=== PATIENT | female | born 1975 | race Caucasian/White ===

== ENCOUNTER 2016-11-24 11:24 | Emergency (ER) | payer OTHER ==
--- NOTE | 2016-11-24 12:20 | DIAGNOSTIC IMAGING REPORT ---
PROCEDURE: XR TOE - RIGHT INDICATION: TRAUMA/INJURY TECHNIQUE: Three views. COMPARISON: None. FINDINGS: Nondisplaced comminuted fracture of distal tuft of the right great toe. IMPRESSION: 1. Nondisplaced comminuted fracture of distal tuft of the right great toe.
--- NOTE | 2016-11-24 12:30 | ED CLINICAL REPORT ---
Clinical Report - Physicians/Mid Levels [facility] [address] [place] [address] 11/24/2016 11:28 Patient: TROY MONROY Time Seen: 1145. Arrived- By private vehicle. Historian- patient and family. HISTORY OF PRESENT ILLNESS Chief Complaint: Injury to the right great toe. The injury happened today. The patient sustained a moderate crush injury- dropped object on foot. Occurred at home. Patient is experiencing moderate pain. Patient denies injury to the head or neck. No other injury. REVIEW OF SYSTEMS The patient sustained a laceration. She complains of pain on weight bearing. No weakness, numbness or suspected foreign body. All systems otherwise negative, except as recorded above. PAST HISTORY See nurses notes. Tetanus immunization status is up-to-date. Medications: None. Allergies: Penicillins. Zofran. (lips swelling ). SOCIAL HISTORY Never smoker. Occasional alcohol use. No drug use. Is a local resident. ADDITIONAL NOTES The nursing notes have been reviewed. PHYSICAL EXAM Vital Signs: 11/24/2016 11:44 BP: 123/88. HR: 90. RR: 16. O2 saturation: 96%. Temp: 98.1 F. Pain level now: 5/10. Blood pressure normal. Oxygen saturation normal. Appearance: Alert. Oriented X3. No acute distress. Head: Head atraumatic. CVS: Normal heart rate and rhythm. Heart sounds normal. Pulses normal. Respiratory: No respiratory distress. Breath sounds normal. Chest nontender. Abdomen: No visible injury. Soft and nontender. Bowel sounds normal. Skin: Skin intact. Skin warm and dry. Extremities: (large toe with medial distal 1/4 of nail avulsed. no active bleeding. no isaiah exposure. full AROM of the toe.). No foot injury. No ankle injury. Neuro, Vascular and Tendons: Vascular status intact. Sensation intact. Motor intact. Tendon function intact. Neuro: No motor deficit. No sensory deficit. LABS, X-RAYS, AND EKG Rt Toes X-ray: Normal alignment. Right toe(s) fracture. Joint spaces normal. No air in the soft tissue. Soft tissue swelling. Views: AP, lateral and oblique. Technique: good. The X-rays were independently viewed by me and interpreted by the radiologist. The X-rays were discussed with the radiologist (via pacs). PROGRESS AND PROCEDURES Course of Care: the patient is a pleasant 41-year-old female with no pertinent past medical history presenting for evaluation of right-sided toe pain. Based to be traumatic in nature. We'll evaluate for any acute osseous abnormalities with radiographs of the patient's toe. Patient is currentlyrequesting nonsedative type of pain medication. Vaccinations are up-to-date. Bleeding has been controlled while here in the emergency department. No foreign bodies noted. Patient's workup was remarkable for the findings above. Distal tuft fracture noted on examination. Because of the patient's injury, feel the patient would benefit from prophylactic antibiotics. Had a discussion with the patient in regards to her diagnosis here in the emergency department and need for follow-up with podiatry. Infection precautions also provided. Discussed with the patient workup here in the emergency department diagnosis, home care, follow-up, and return precautions. All questions have been answered. The patient expressed understanding of these instructions and was agreeable to them. Disposition: Discharged. Condition: good. CLINICAL IMPRESSION 11/24/2016 11:44 BP: 123/88. HR: 90. RR: 16. O2 saturation: 96%. Temp: 98.1 F. Pain level now: 5/10. Blood pressure normal. Oxygen saturation normal. Open distal phalanx fracture of the right 1st toe. Partial nail avulsion to right great toe. INSTRUCTIONS Warnings: GENERAL WARNINGS: Return or contact your physician immediately if your condition worsens or changes unexpectedly, if not improving as expected, or if other problems arise. Specifically return if pain, vomiting, bleeding, breathing difficulty or fever. Your Current Medications: CONTINUE TAKING THE FOLLOWING MEDICATIONS: None*. Prescription Medications: [place] 5 mg / 325 mg tablets: take 1 orally every 6 hours as needed for pain. Dispense twenty (20). No refill. Substitution is permissible. Clindamycin 300 mg: take 1 capsule orally every 8 hours for 7 days. No refill. (disp 21 caps) Follow-up: Return to the emergency department as needed. Follow up with your doctor in three days. Reason for referral: recheck today's concerns Screening today revealed the patient's blood pressure to be in the normal range. The patient should follow up with a primary care provider for blood pressure management. Understanding of the discharge instructions verbalized by patient. Follow-up with: Ludin Frias DPM, Podiatry, , [facility], [address] [place] [address], [address], [place] [address] Follow up. Reason for referral: recheck today's concerns in 5 - 7 days. Summary of care provided to patient via paper. (Electronically signed by Mike Canada Dr. 11/30/2016 14:50)
--- NOTE | 2016-11-24 12:30 | ED ORDER SUMMARY ---
..... Patient: TROY MONROY OrderSheet [facility] VisitID: [id number] [address] [place] [address] 41y, F Registration Date/Time: 11/24/2016 ORDER SHEET Weight: 81.6 kg (estimated) Allergies: Penicillins, Zofran GENERAL ORDERS: Toe Right Urgent (11:49 11/24/2016 Jennifer Almazan) (Ack 11:57 Fifi) (12:07 Fifi) Irrigate Wounds (NS) (betadine or chlorhexidine) (11:50 11/24/2016 Jennifer Almazan) (12:37 Fifi) MEDICATION ORDERS: Tylenol PO 650 mg (NOW) (11:49 11/24/2016 Jennifer Almazan) (12:44 Scotty Mustafa) IV FLUIDS: ORDER SHEET NOTES: [Electronically signed by Lex Segura R.N. (19:05 11/24/2016)] [Electronically signed by Mike Canada Dr. (14:50 11/30/2016)] [Electronically locked/signed by Lex Segura R.N. (19:11/24/2016)]
--- NOTE | 2016-11-24 12:30 | ED CLINICAL REPORT ---
Clinical Report - Physicians/Mid Levels [facility] [address] [place] [address] 11/24/2016 11:28 Patient: TROY MONROY Time Seen: 1145. Arrived- By private vehicle. Historian- patient and family. HISTORY OF PRESENT ILLNESS Chief Complaint: Injury to the right great toe. The injury happened today. The patient sustained a moderate crush injury- dropped object on foot. Occurred at home. Patient is experiencing moderate pain. Patient denies injury to the head or neck. No other injury. REVIEW OF SYSTEMS The patient sustained a laceration. She complains of pain on weight bearing. No weakness, numbness or suspected foreign body. All systems otherwise negative, except as recorded above. PAST HISTORY See nurses notes. Tetanus immunization status is up-to-date. Medications: None. Allergies: Penicillins. Zofran. (lips swelling ). SOCIAL HISTORY Never smoker. Occasional alcohol use. No drug use. Is a local resident. ADDITIONAL NOTES The nursing notes have been reviewed. PHYSICAL EXAM Vital Signs: 11/24/2016 11:44 BP: 123/88. HR: 90. RR: 16. O2 saturation: 96%. Temp: 98.1 F. Pain level now: 5/10. Blood pressure normal. Oxygen saturation normal. Appearance: Alert. Oriented X3. No acute distress. Head: Head atraumatic. CVS: Normal heart rate and rhythm. Heart sounds normal. Pulses normal. Respiratory: No respiratory distress. Breath sounds normal. Chest nontender. Abdomen: No visible injury. Soft and nontender. Bowel sounds normal. Skin: Skin intact. Skin warm and dry. Extremities: (large toe with medial distal 1/4 of nail avulsed. no active bleeding. no isaiah exposure. full AROM of the toe.). No foot injury. No ankle injury. Neuro, Vascular and Tendons: Vascular status intact. Sensation intact. Motor intact. Tendon function intact. Neuro: No motor deficit. No sensory deficit. LABS, X-RAYS, AND EKG Rt Toes X-ray: Normal alignment. Right toe(s) fracture. Joint spaces normal. No air in the soft tissue. Soft tissue swelling. Views: AP, lateral and oblique. Technique: good. The X-rays were independently viewed by me and interpreted by the radiologist. The X-rays were discussed with the radiologist (via pacs). PROGRESS AND PROCEDURES Course of Care: the patient is a pleasant 41-year-old female with no pertinent past medical history presenting for evaluation of right-sided toe pain. Based to be traumatic in nature. We'll evaluate for any acute osseous abnormalities with radiographs of the patient's toe. Patient is currentlyrequesting nonsedative type of pain medication. Vaccinations are up-to-date. Bleeding has been controlled while here in the emergency department. No foreign bodies noted. Patient's workup was remarkable for the findings above. Distal tuft fracture noted on examination. Because of the patient's injury, feel the patient would benefit from prophylactic antibiotics. Had a discussion with the patient in regards to her diagnosis here in the emergency department and need for follow-up with podiatry. Infection precautions also provided. Discussed with the patient workup here in the emergency department diagnosis, home care, follow-up, and return precautions. All questions have been answered. The patient expressed understanding of these instructions and was agreeable to them. Disposition: Discharged. Condition: good. CLINICAL IMPRESSION 11/24/2016 11:44 BP: 123/88. HR: 90. RR: 16. O2 saturation: 96%. Temp: 98.1 F. Pain level now: 5/10. Blood pressure normal. Oxygen saturation normal. Open distal phalanx fracture of the right 1st toe. Partial nail avulsion to right great toe. INSTRUCTIONS Warnings: GENERAL WARNINGS: Return or contact your physician immediately if your condition worsens or changes unexpectedly, if not improving as expected, or if other problems arise. Specifically return if pain, vomiting, bleeding, breathing difficulty or fever. Your Current Medications: CONTINUE TAKING THE FOLLOWING MEDICATIONS: None*. Prescription Medications: [place] 5 mg / 325 mg tablets: take 1 orally every 6 hours as needed for pain. Dispense twenty (20). No refill. Substitution is permissible. Clindamycin 300 mg: take 1 capsule orally every 8 hours for 7 days. No refill. (disp 21 caps) Follow-up: Return to the emergency department as needed. Follow up with your doctor in three days. Reason for referral: recheck today's concerns Screening today revealed the patient's blood pressure to be in the normal range. The patient should follow up with a primary care provider for blood pressure management. Understanding of the discharge instructions verbalized by patient. Follow-up with: Ludin Frias DPM, Podiatry, , [facility], [address] [place] [address], [address], [place] [address] Follow up. Reason for referral: recheck today's concerns in 5 - 7 days. Summary of care provided to patient via paper. (Electronically signed by Mike Canada Dr. 11/30/2016 14:50)
--- NOTE | 2016-11-24 12:30 | ED NURSING NOTES ---
Clinical Report - Nurses [facility] [place] [address] 11/24/2016 11:28 Patient: TROY MONROY TRIAGE Triage time 11:44. Acuity: LEVEL 4. Chief Complaint: INJURY TO THE RIGHT GREAT TOE (Toe was smashed by a heavy object, open avulsion with partial nail removal.). SEPSIS SCREEN: Sepsis Screen. Negative (no infection suspected/documented). VANDANA COMA SCORE: [place] Coma Scale: 15- eyes open spontaneously (4); best verbal response- oriented x 4 (5); best motor response- obeys commands (6). --11:53 Lex Segura R.N. 11:44 11/24/16. BP: 123/88. HR: 90. RR: 16. O2 saturation: 96% on room air. Temp: 98.1 F (oral). Pain level now: 11/15. --11:53 Lex Segura R.N. Weight: 81.6 kg estimated. Height/Length: 65 inches Per Patient. BMI: 30. --11:48 Lex Segura R.N. Medications None. --11:48 Lex Segura R.N. Allergies Penicillins. Zofran. (lips swelling ) --11:47 Lex Segura R.N. History Arrived by private vehicle. Historian: patient. This occurred just prior to arrival. PAST MEDICAL HX: Tetanus status: unknown. SOCIAL HX: Never smoker. Occasional alcohol use. No drug use. ABUSE ASSESSMENT: No report of abuse. --11:53 Lex Segura R.N. PROBLEMS: Polycystic Ovary Disease. Hypertension. Bronchitis. Dyspnea. Abdominal Pain. Care. Hypovolemia. Hypokalemia. . --11:48 Lex Segura R.N. ADDITIONAL SURGERIES: Dilatation & Curettage. Sinus Surgery. --11:48 Lex Segura R.N. Assessment GENERAL / NEURO / PSYCH: Alert. Oriented X 4. Appears in pain. Patient appears calm and cooperative. RESPIRATORY: Respirations not labored. Chest nontender. Breath sounds within normal limits. CVS: Capillary refill less than 2 seconds. SKIN: Mucous membranes are pink. Skin is warm and dry. --11:53 Lex Segura R.N. Interventions ID band on patient. To treatment room. --11:53 Lex Segura R.N. PHYSICAL ASSESSMENT To room via wheelchair. GENERAL / NEURO / PSYCH: Oriented X 4. Alert. EXTREMITIES: Capillary refill is less than 2 seconds in the extremities. Extremity pulses are within normal limits. Extremities exhibit normal ROM. Neuro-vascular status intact to the extremity. SKIN: Skin is warm and dry. ( right great toe partial nail and nailbed avulsion, bleeding has slowed to scant.). --11:56 Lex Segura R.N. NURSING PROGRESS NOTES Reassurance given. Two patient identifiers checked. Call light placed in reach. Bed placed in lowest position. Brakes of bed on. Patient ready for evaluation- chart flagged. --11:56 Lex Segura R.N. Patient transported to radiology by wheelchair. --11:56 Lex Segura R.N. 12:30 11/24/2016 Tylenol (Acetaminophen) PO Tablets 650 mg given. Allergies verified and confirmed 5 rights. --12:44 Lex Segura R.N. 13:15. Wound cleansed with sterile saline and chlorhexidine. Applied clean dressing, following the application of antibiotic ointment. Secured with tube gauze. Ortho shoe applied to right foot by tech; distal pulses intact, sensation intact and motor function within normal limits. --13:36 [facility]. DISPOSITION / DISCHARGE Departure time: 1330. Condition at departure: unchanged and stable. No learning barriers present. Discharge instructions provided and reviewed with the patient and spouse. Reviewed warnings. Reviewed medication(s). Treatments reviewed. Patient and spouse verbalized understanding. Written instructions provided in Occitan. The patient was discharged by the physician. She was discharged home and accompanied by spouse. She left the Emergency Department ambulatory and via private vehicle. Spouse driving. --13:53 Lex Segura R.N. 13:30 11/24/16. BP: 121/67. HR: 79. RR: 16. O2 saturation: 96% on room air. Temp: 98.1 F (oral). Pain level now: 6/10. --13:53 Lex Segura R.N. Locked/Released at 11/24/2016 19:05 by Lex Segura R.N.
--- NOTE | 2016-11-24 12:30 | ED ORDER SUMMARY ---
..... Patient: TROY MONROY OrderSheet [facility] VisitID: [id number] [address] [place] [address] 41y, F Registration Date/Time: 11/24/2016 ORDER SHEET Weight: 81.6 kg (estimated) Allergies: Penicillins, Zofran GENERAL ORDERS: Toe Right Urgent (11:49 11/24/2016 Jennifer Almazan) (Ack 11:57 Fifi) (12:07 Fifi) Irrigate Wounds (NS) (betadine or chlorhexidine) (11:50 11/24/2016 Jennifer Almazan) (12:37 Fifi) MEDICATION ORDERS: Tylenol PO 650 mg (NOW) (11:49 11/24/2016 Jennifer Almazan) (12:44 Scotty Mustafa) IV FLUIDS: ORDER SHEET NOTES: [Electronically signed by Lex Segura R.N. (19:05 11/24/2016)] [Electronically signed by Mike Canada Dr. (14:50 11/30/2016)] [Electronically locked/signed by Lex Segura R.N. (19:11/24/2016)]
--- NOTE | 2016-11-30 14:50 | ED DISCHARGE INSTRUCTIONS ---
Patient: TROY MONROY General Instructions [facility] VisitID: [id number] [address] [place] [address] 41y, F Registration Date/Time: 11/24/2016 11/24/2016 11:44 BP: 123/88. HR: 90. RR: 16. O2 saturation: 96%. Temp: 98.1 F. Pain level now: 5/10. Blood pressure normal. Oxygen saturation normal. Open distal phalanx fracture of the right 1st toe. Partial nail avulsion to right great toe. INSTRUCTIONS Warnings: GENERAL WARNINGS: Return or contact your physician immediately if your condition worsens or changes unexpectedly, if not improving as expected, or if other problems arise. Specifically return if pain, vomiting, bleeding, breathing difficulty or fever. Your Current Medications: CONTINUE TAKING THE FOLLOWING MEDICATIONS: None*. Prescription Medications: Quinwood 5 mg / 325 mg tablets: take 1 orally every 6 hours as needed for pain. Dispense twenty (20). No refill. Substitution is permissible. Clindamycin 300 mg: take 1 capsule orally every 8 hours for 7 days. No refill. (disp 21 caps) Follow-up: Return to the emergency department as needed. Follow up with your doctor in three days. Reason for referral: recheck today's concerns Screening today revealed the patient's blood pressure to be in the normal range. The patient should follow up with a primary care provider for blood pressure management. Understanding of the discharge instructions verbalized by patient. Follow-up with: Ludin Frias DPM, Podiatry, , [facility], [address] [place] [address], [address], [place] [id number] Follow up. Reason for referral: recheck today's concerns in 5 - 7 days. Summary of care provided to patient via paper. ADDITIONAL INFORMATION Fracture:Toe(Open) You have a fracture of your toe (broken toe) with a nearby cut (laceration), puncture or deep scrape. This causes local pain, swelling and bruising. Because of the open injury, there is a risk of infection in the skin and bone. Antibiotics will be used to lower the risk of infection. Any laceration will take about 10 days to heal. The fracture takes about four weeks to heal. Toe injuries are often treated by taping the injured toe to the next one ("chiquita taping"). This protects the injured toe and holds it in position. If the toenail has been severely injured, it may fall off in 12 weeks. It takes up to 12 months for a new toenail to grow back. Home care The following guidelines will help you care for your wound at home: You may be given a cast shoe or boot to wear to prevent movement in your toe. If not, you can use a sandal or any shoe that does not put pressure on the injured toe until the swelling and pain go away. If using a sandal, be careful not to strike your foot against anything, since another injury could make the fracture worse. If you were given crutches, do not put full weight on the injured foot until you can do so without pain. Keep your foot elevated to reduce pain and swelling. When sleeping, place a pillow under the injured leg. When sitting, support the injured leg so it is level with your waist. This is very important during the first 48 hours. Apply an ice pack (ice cubes in a plastic bag, wrapped in a towel) over the injured area for 20 minutes every 12 hours the first day. Continue with ice packs 34 times a day for the next two days, then as needed for the relief of pain and swelling. If chiquita tape was applied and it becomes wet or dirty, change it. You may replace it with paper, plastic or cloth tape. Cloth tape and paper tapes must be kept dry. Keep the chiquita tape in place for at least four weeks. Keep the wound clean and dry. If a bandage was applied and it becomes wet or dirty, replace it. Otherwise, leave it in place for the first 24 hours. Ifsutureswere used, clean the wound daily: After removing the bandage, wash the area with soap and water. Use a wet cotton swab to loosen and remove any blood or crust that forms. After cleaning, apply a thin layer of antibiotic ointment. This will keep the wound clean and make it easier to remove the stitches. Reapply a fresh bandage. You may remove the bandage to shower as usual after the first 24 hours, but do not soak the area in water (no tub baths or swimming) until the sutures are removed. Ifsurgical tapewas used, keep the area clean and dry. If it becomes wet, blot it dry with a towel. You may use acetaminophen or ibuprofen to control pain, unless another pain medicine was prescribed.If you have chronic liver or kidney disease or ever had a stomach ulcer or GI bleeding, talk with your doctor before using these medicines. Take any prescribed antibiotics until they are gone. You may return to sports or physical education activities after four weeks or when you can run without pain. Follow-up care Follow up with your doctor in one week, or as advised by our staff, to be sure the bone is healing properly. Most skin wounds heal within 10 days. However, even with proper treatment, a wound infection may sometimes occur. Therefore, you should check the wound daily for signs of infection listed below. Stitches should be removed in 710 days. If surgical tape closures were used, remove them yourself if they have not fallen off after 10 days. We will notify you of any new findings that may affect your care. When to seek medical care Get prompt medical attention if any of the following occur: Redness, warmth, swelling, drainage from the wound, or foul odor Fever of 100.4F (38C) or higher, or as directed by your health care provider Sutures come apart or surgical tape closures fall off before seven days Wound edges re-open Bleeding that is not controlled with direct pressure Toe becomes cold, blue, numb or tingly Hydrocodone Bitartrate, Acetaminophen Oral tablet What is this medicine? ACETAMINOPHEN; HYDROCODONE (a set a INGRID gualberto fen; gary droe KOE done) is a pain reliever. It is used to treat mild to moderate pain. How should I use this medicine? Take this medicine by mouth. Swallow it with a full glass of water. Follow the directions on the prescription label. If the medicine upsets your stomach, take the medicine with food or milk. Do not take more than you are told to take. Talk to your business intelligence engineer regarding the use of this medicine in children. This medicine is not approved for use in children. What side effects may I notice from receiving this medicine? Side effects that you should report to your doctor or health career development coordinator as soon as possible: allergic reactions like skin rash, itching or hives, swelling of the face, lips, or tongue breathing problems confusion feeling faint or lightheaded, falls stomach pain yellowing of the eyes or skin Side effects that usually do not require medical attention (report to your doctor or health career development coordinator if they continue or are bothersome): nausea, vomiting stomach upset What may interact with this medicine? alcohol antihistamines isoniazid medicines for depression, anxiety, or psychotic disturbances medicines for sleep muscle relaxants naltrexone narcotic medicines (opiates) for pain phenobarbital ritonavir tramadol What if I miss a dose? If you miss a dose, take it as soon as you can. If it is almost time for your next dose, take only that dose. Do not take double or extra doses. Where should I keep my medicine? Keep out of the reach of children. This medicine can be abused. Keep your medicine in a safe place to protect it from theft. Do not share this medicine with anyone. Selling or giving away this medicine is dangerous and against the law. Store at room temperature between 15 and 30 degrees C (59 and 86 degrees F). Protect from light. Keep container tightly closed. Throw away any unused medicine after the expiration date. Discard unused medicine and used packaging carefully. Pets and children can be harmed if they find used or lost packages. What should I tell my health care provider before I take this medicine? They need to know if you have any of these conditions: brain tumor Crohn's disease, inflammatory bowel disease, or ulcerative colitis drink more than 3 alcohol-containing drinks per day drug abuse or addiction head injury heart or circulation problems kidney disease or problems going to the bathroom liver disease lung disease, asthma, or breathing problems an unusual or allergic reaction to acetaminophen, hydrocodone, other opioid analgesics, other medicines, foods, dyes, or preservatives or trying to get breast-feeding What should I watch for while using this medicine? Tell your doctor or health career development coordinator if your pain does not go away, if it gets worse, or if you have new or a different type of pain. You may develop tolerance to the medicine. Tolerance means that you will need a higher dose of the medicine for pain relief. Tolerance is normal and is expected if you take the medicine for a long time. Do not suddenly stop taking your medicine because you may develop a severe reaction. Your body becomes used to the medicine. This does NOT mean you are addicted. Addiction is a behavior related to getting and using a drug for a non-medical reason. If you have pain, you have a medical reason to take pain medicine. Your doctor will tell you how much medicine to take. If your doctor wants you to stop the medicine, the dose will be slowly lowered over time to avoid any side effects. You may get drowsy or dizzy when you first start taking the medicine or change doses. Do not drive, use machinery, or do anything that may be dangerous until you know how the medicine affects you. Stand or sit up slowly. There are different types of narcotic medicines (opiates) for pain. If you take more than one type at the same time, you may have more side effects. Give your health care provider a list of all medicines you use. Your doctor will tell you how much medicine to take. Do not take more medicine than directed. Call emergency for help if you have problems breathing. The medicine will cause constipation. Try to have a bowel movement at least every 2 to 3 days. If you do not have a bowel movement for 3 days, call your doctor or health career development coordinator. Too much acetaminophen can be very dangerous. Do not take Tylenol (acetaminophen) or medicines that contain acetaminophen with this medicine. Many non-prescription medicines contain acetaminophen. Always read the labels carefully. Clindamycin Hydrochloride Oral capsule What is this medicine? CLINDAMYCIN (KLIN da RACHEL sin) is a lincosamide antibiotic. It is used to treat certain kinds of bacterial infections. It will not work for colds, flu, or other viral infections. How should I use this medicine? Take this medicine by mouth with a full glass of water. Follow the directions on the prescription label. You can take this medicine with food or on an empty stomach. If the medicine upsets your stomach, take it with food. Take your medicine at regular intervals. Do not take your medicine more often than directed. Take all of your medicine as directed even if you think your are better. Do not skip doses or stop your medicine early. Talk to your business intelligence engineer regarding the use of this medicine in children. Special care may be needed. What side effects may I notice from receiving this medicine? Side effects that you should report to your doctor or health career development coordinator as soon as possible: allergic reactions like skin rash, itching or hives, swelling of the face, lips, or tongue dark urine pain on swallowing redness, blistering, peeling or loosening of the skin, including inside the mouth unusual bleeding or bruising unusually weak or tired yellowing of eyes or skin Side effects that usually do not require medical attention (report to your doctor or health career development coordinator if they continue or are bothersome): diarrhea itching in the rectal or genital area joint pain nausea, vomiting stomach pain What may interact with this medicine? chloramphenicol erythromycin kaolin products What if I miss a dose? If you miss a dose, take it as soon as you can. If it is almost time for your next dose, take only that dose. Do not take double or extra doses. Where should I keep my medicine? Keep out of the reach of children. Store at room temperature between 20 and 25 degrees C (68 and 77 degrees F). Throw away any unused medicine after the expiration date. What should I tell my health care provider before I take this medicine? They need to know if you have any of these conditions: kidney disease liver disease stomach problems like colitis an unusual or allergic reaction to clindamycin, lincomycin, or other medicines, foods, dyes like tartrazine or preservatives or trying to get breast-feeding What should I watch for while using this medicine? Tell your doctor or healthcare professional if your symptoms do not start to get better or if they get worse. Do not treat diarrhea with over the counter products. Contact your doctor if you have diarrhea that lasts more than 2 days or if it is severe and watery. You have been given the following additional information: Fracture, Toe (Open) Hydrocodone Bitartrate, Acetaminophen Oral tablet Clindamycin Hydrochloride Oral capsule (Electronically signed by Mike [address] Dr. 11/30/2016 14:50)
--- NOTE | 2016-11-30 14:50 | ED DISCHARGE INSTRUCTIONS ---
Patient: TROY MONROY General Instructions [facility] VisitID: [id number] [address] [place] [address] 41y, F Registration Date/Time: 11/24/2016 11/24/2016 11:44 BP: 123/88. HR: 90. RR: 16. O2 saturation: 96%. Temp: 98.1 F. Pain level now: 5/10. Blood pressure normal. Oxygen saturation normal. Open distal phalanx fracture of the right 1st toe. Partial nail avulsion to right great toe. INSTRUCTIONS Warnings: GENERAL WARNINGS: Return or contact your physician immediately if your condition worsens or changes unexpectedly, if not improving as expected, or if other problems arise. Specifically return if pain, vomiting, bleeding, breathing difficulty or fever. Your Current Medications: CONTINUE TAKING THE FOLLOWING MEDICATIONS: None*. Prescription Medications: [place] 5 mg / 325 mg tablets: take 1 orally every 6 hours as needed for pain. Dispense twenty (20). No refill. Substitution is permissible. Clindamycin 300 mg: take 1 capsule orally every 8 hours for 7 days. No refill. (disp 21 caps) Follow-up: Return to the emergency department as needed. Follow up with your doctor in three days. Reason for referral: recheck today's concerns Screening today revealed the patient's blood pressure to be in the normal range. The patient should follow up with a primary care provider for blood pressure management. Understanding of the discharge instructions verbalized by patient. Follow-up with: Ludin Frias DPM, Podiatry, , [facility], [address] [place] [address], [address], [place] [address] Follow up. Reason for referral: recheck today's concerns in 5 - 7 days. Summary of care provided to patient via paper. ADDITIONAL INFORMATION Fracture:Toe(Open) You have a fracture of your toe (broken toe) with a nearby cut (laceration), puncture or deep scrape. This causes local pain, swelling and bruising. Because of the open injury, there is a risk of infection in the skin and bone. Antibiotics will be used to lower the risk of infection. Any laceration will take about 10 days to heal. The fracture takes about four weeks to heal. Toe injuries are often treated by taping the injured toe to the next one ("chiquita taping"). This protects the injured toe and holds it in position. If the toenail has been severely injured, it may fall off in 12 weeks. It takes up to 12 months for a new toenail to grow back. Home care The following guidelines will help you care for your wound at home: You may be given a cast shoe or boot to wear to prevent movement in your toe. If not, you can use a sandal or any shoe that does not put pressure on the injured toe until the swelling and pain go away. If using a sandal, be careful not to strike your foot against anything, since another injury could make the fracture worse. If you were given crutches, do not put full weight on the injured foot until you can do so without pain. Keep your foot elevated to reduce pain and swelling. When sleeping, place a pillow under the injured leg. When sitting, support the injured leg so it is level with your waist. This is very important during the first 48 hours. Apply an ice pack (ice cubes in a plastic bag, wrapped in a towel) over the injured area for 20 minutes every 12 hours the first day. Continue with ice packs 34 times a day for the next two days, then as needed for the relief of pain and swelling. If chiquita tape was applied and it becomes wet or dirty, change it. You may replace it with paper, plastic or cloth tape. Cloth tape and paper tapes must be kept dry. Keep the chiquita tape in place for at least four weeks. Keep the wound clean and dry. If a bandage was applied and it becomes wet or dirty, replace it. Otherwise, leave it in place for the first 24 hours. Ifsutureswere used, clean the wound daily: After removing the bandage, wash the area with soap and water. Use a wet cotton swab to loosen and remove any blood or crust that forms. After cleaning, apply a thin layer of antibiotic ointment. This will keep the wound clean and make it easier to remove the stitches. Reapply a fresh bandage. You may remove the bandage to shower as usual after the first 24 hours, but do not soak the area in water (no tub baths or swimming) until the sutures are removed. Ifsurgical tapewas used, keep the area clean and dry. If it becomes wet, blot it dry with a towel. You may use acetaminophen or ibuprofen to control pain, unless another pain medicine was prescribed.If you have chronic liver or kidney disease or ever had a stomach ulcer or GI bleeding, talk with your doctor before using these medicines. Take any prescribed antibiotics until they are gone. You may return to sports or physical education activities after four weeks or when you can run without pain. Follow-up care Follow up with your doctor in one week, or as advised by our staff, to be sure the bone is healing properly. Most skin wounds heal within 10 days. However, even with proper treatment, a wound infection may sometimes occur. Therefore, you should check the wound daily for signs of infection listed below. Stitches should be removed in 710 days. If surgical tape closures were used, remove them yourself if they have not fallen off after 10 days. We will notify you of any new findings that may affect your care. When to seek medical care Get prompt medical attention if any of the following occur: Redness, warmth, swelling, drainage from the wound, or foul odor Fever of 100.4F (38C) or higher, or as directed by your health care provider Sutures come apart or surgical tape closures fall off before seven days Wound edges re-open Bleeding that is not controlled with direct pressure Toe becomes cold, blue, numb or tingly Hydrocodone Bitartrate, Acetaminophen Oral tablet What is this medicine? ACETAMINOPHEN; HYDROCODONE (a set a NIGRID gualberto fen; gary droe KOE done) is a pain reliever. It is used to treat mild to moderate pain. How should I use this medicine? Take this medicine by mouth. Swallow it with a full glass of water. Follow the directions on the prescription label. If the medicine upsets your stomach, take the medicine with food or milk. Do not take more than you are told to take. Talk to your line department supervisor regarding the use of this medicine in children. This medicine is not approved for use in children. What side effects may I notice from receiving this medicine? Side effects that you should report to your doctor or health home day care provider as soon as possible: allergic reactions like skin rash, itching or hives, swelling of the face, lips, or tongue breathing problems confusion feeling faint or lightheaded, falls stomach pain yellowing of the eyes or skin Side effects that usually do not require medical attention (report to your doctor or health home day care provider if they continue or are bothersome): nausea, vomiting stomach upset What may interact with this medicine? alcohol antihistamines isoniazid medicines for depression, anxiety, or psychotic disturbances medicines for sleep muscle relaxants naltrexone narcotic medicines (opiates) for pain phenobarbital ritonavir tramadol What if I miss a dose? If you miss a dose, take it as soon as you can. If it is almost time for your next dose, take only that dose. Do not take double or extra doses. Where should I keep my medicine? Keep out of the reach of children. This medicine can be abused. Keep your medicine in a safe place to protect it from theft. Do not share this medicine with anyone. Selling or giving away this medicine is dangerous and against the law. Store at room temperature between 15 and 30 degrees C (59 and 86 degrees F). Protect from light. Keep container tightly closed. Throw away any unused medicine after the expiration date. Discard unused medicine and used packaging carefully. Pets and children can be harmed if they find used or lost packages. What should I tell my health care provider before I take this medicine? They need to know if you have any of these conditions: brain tumor Crohn's disease, inflammatory bowel disease, or ulcerative colitis drink more than 3 alcohol-containing drinks per day drug abuse or addiction head injury heart or circulation problems kidney disease or problems going to the bathroom liver disease lung disease, asthma, or breathing problems an unusual or allergic reaction to acetaminophen, hydrocodone, other opioid analgesics, other medicines, foods, dyes, or preservatives or trying to get breast-feeding What should I watch for while using this medicine? Tell your doctor or health home day care provider if your pain does not go away, if it gets worse, or if you have new or a different type of pain. You may develop tolerance to the medicine. Tolerance means that you will need a higher dose of the medicine for pain relief. Tolerance is normal and is expected if you take the medicine for a long time. Do not suddenly stop taking your medicine because you may develop a severe reaction. Your body becomes used to the medicine. This does NOT mean you are addicted. Addiction is a behavior related to getting and using a drug for a non-medical reason. If you have pain, you have a medical reason to take pain medicine. Your doctor will tell you how much medicine to take. If your doctor wants you to stop the medicine, the dose will be slowly lowered over time to avoid any side effects. You may get drowsy or dizzy when you first start taking the medicine or change doses. Do not drive, use machinery, or do anything that may be dangerous until you know how the medicine affects you. Stand or sit up slowly. There are different types of narcotic medicines (opiates) for pain. If you take more than one type at the same time, you may have more side effects. Give your health care provider a list of all medicines you use. Your doctor will tell you how much medicine to take. Do not take more medicine than directed. Call emergency for help if you have problems breathing. The medicine will cause constipation. Try to have a bowel movement at least every 2 to 3 days. If you do not have a bowel movement for 3 days, call your doctor or health home day care provider. Too much acetaminophen can be very dangerous. Do not take Tylenol (acetaminophen) or medicines that contain acetaminophen with this medicine. Many non-prescription medicines contain acetaminophen. Always read the labels carefully. Clindamycin Hydrochloride Oral capsule What is this medicine? CLINDAMYCIN (KLIN da RACHEL sin) is a lincosamide antibiotic. It is used to treat certain kinds of bacterial infections. It will not work for colds, flu, or other viral infections. How should I use this medicine? Take this medicine by mouth with a full glass of water. Follow the directions on the prescription label. You can take this medicine with food or on an empty stomach. If the medicine upsets your stomach, take it with food. Take your medicine at regular intervals. Do not take your medicine more often than directed. Take all of your medicine as directed even if you think your are better. Do not skip doses or stop your medicine early. Talk to your line department supervisor regarding the use of this medicine in children. Special care may be needed. What side effects may I notice from receiving this medicine? Side effects that you should report to your doctor or health home day care provider as soon as possible: allergic reactions like skin rash, itching or hives, swelling of the face, lips, or tongue dark urine pain on swallowing redness, blistering, peeling or loosening of the skin, including inside the mouth unusual bleeding or bruising unusually weak or tired yellowing of eyes or skin Side effects that usually do not require medical attention (report to your doctor or health home day care provider if they continue or are bothersome): diarrhea itching in the rectal or genital area joint pain nausea, vomiting stomach pain What may interact with this medicine? chloramphenicol erythromycin kaolin products What if I miss a dose? If you miss a dose, take it as soon as you can. If it is almost time for your next dose, take only that dose. Do not take double or extra doses. Where should I keep my medicine? Keep out of the reach of children. Store at room temperature between 20 and 25 degrees C (68 and 77 degrees F). Throw away any unused medicine after the expiration date. What should I tell my health care provider before I take this medicine? They need to know if you have any of these conditions: kidney disease liver disease stomach problems like colitis an unusual or allergic reaction to clindamycin, lincomycin, or other medicines, foods, dyes like tartrazine or preservatives or trying to get breast-feeding What should I watch for while using this medicine? Tell your doctor or healthcare professional if your symptoms do not start to get better or if they get worse. Do not treat diarrhea with over the counter products. Contact your doctor if you have diarrhea that lasts more than 2 days or if it is severe and watery. You have been given the following additional information: Fracture, Toe (Open) Hydrocodone Bitartrate, Acetaminophen Oral tablet Clindamycin Hydrochloride Oral capsule (Electronically signed by Mike Canada Dr. 11/30/2016 14:50)
--- NOTE | 2016-11-30 14:51 | ED MED RECONCILIATION SUMMARY ---
Patient: TROY MONROY Medication Reconciliation Report [facility] VisitID: [id number] [address] [place] [address] 41y, F Registration Date/Time: 11/24/2016 Weight: 81.6 kg Height/Length: 65 in. BMI: 30.0 ALLERGIES: Penicillins, Zofran The patient's Home Medications are listed below: NONE. The source(s) of the original Home Medication information: Not obtained. The following Medications were given to the patient in the Emergency Department: Tylenol [PO] PO 650 mg, administered: 11/24/2016 12:30:00 PM The following Medications were prescribed to the patient: [place] 5 mg / 325 mg tablets: take 1 orally every 6 hours as needed for pain. Dispense twenty (20). No refill. Substitution is permissible. -- Mike Canada Dr. Clindamycin 300 mg: take 1 capsule orally every 8 hours for 7 days. No refill.(disp 21 caps) -- Mike Canada Dr.
--- NOTE | 2016-11-30 14:51 | ED MAR SUMMARY ---
..... Medication Administration Record [facility] [address] [place] [address] Patient: TROY MONROY Visit ID: [id number] 41y, F Weight: 81.6 kg Height/Length: 65 in BMI: 30 ALLERGIES: Penicillins, Zofran Given 12:30 11/24/2016 Lex Segura R.N. Medication Administered: TYLENOL [PO] (ACETAMINOPHEN), Dose: 650 mg Tablets PO. Medication Ordered: Tylenol PO 650 mg (NOW).
--- NOTE | 2016-11-30 14:51 | ED MAR SUMMARY ---
..... Medication Administration Record [facility] [address] [address] Patient: TROY MONROY Visit ID: [id number] 41y, F Weight: 81.6 kg Height/Length: 65 in BMI: 30 ALLERGIES: Penicillins, Zofran Given 12:30 11/24/2016 Lex Segura R.N. Medication Administered: TYLENOL [PO] (ACETAMINOPHEN), Dose: 650 mg Tablets PO. Medication Ordered: Tylenol PO 650 mg (NOW).
--- NOTE | 2016-11-30 14:51 | ED MED RECONCILIATION SUMMARY ---
Patient: TROY MONROY Medication Reconciliation Report [facility] VisitID: [id number] [address] [place] [address] 41y, F Registration Date/Time: 11/24/2016 Weight: 81.6 kg Height/Length: 65 in. BMI: 30.0 ALLERGIES: Penicillins, Zofran The patient's Home Medications are listed below: NONE. The source(s) of the original Home Medication information: Not obtained. The following Medications were given to the patient in the Emergency Department: Tylenol [PO] PO 650 mg, administered: 11/24/2016 12:30:00 PM The following Medications were prescribed to the patient: [place] 5 mg / 325 mg tablets: take 1 orally every 6 hours as needed for pain. Dispense twenty (20). No refill. Substitution is permissible. -- Mike Canada Dr. Clindamycin 300 mg: take 1 capsule orally every 8 hours for 7 days. No refill.(disp 21 caps) -- Mike Canada Dr.
== END 2016-11-24 13:30 | disposition home or self-care (01) ==
LOC: ED SRH 11:24
DX: S92.421B Displaced fracture of distal phalanx of right great toe, initial encounter for open fracture (principal); W20.8XXA Other cause of strike by thrown, projected or falling object, initial encounter; Y93.9 Activity, unspecified; Y92.009 Unspecified place in unspecified non-institutional (private) residence as the place of occurrence of the external cause; Y99.9 Unspecified external cause status; I10 Essential (primary) hypertension